=== PATIENT | female | born 1990 | race African-American/Black ===

== ENCOUNTER 2018-05-21 11:17 | Emergency (ER) | payer OTHER ==
[2018-05-21] MEDS ORDERED: ACETAMINOPHEN 500 MG TAB ONE (11:47)
--- NOTE | 2018-05-21 12:32 | RAD REPORT ---
EXAM DESCRIPTION: VAS - Extremity Venous Uni Ltd - 05/21/2018 12:08 pm CLINICAL HISTORY: PAIN Leg swelling and edema. COMPARISON: No comparisons FINDINGS: Right lower extremity venous system was interrogated with Doppler technique. Normal flow, compressibility and augmentation was noted. There is no DVT present. IMPRESSION: No evidence of right lower extremity deep venous thrombosis.
[2018-05-21 12:37] LABS: Absolute Lymphocytes (CBC) 1.5 K/uL (0.7-4.9); Absolute Monocytes 1.2 K/uL (0.1-1.3); Absolute Neutrophil 3.7 K/uL (1.8-8.0); Basophils % 0.7 % (0-1.3); Hematocrit 29.2 % (36.0-45.0); MCH 31.2 pg (27.0-35.0); MCV 91.2 fL (80-100); MPV 8.4 fL (7.6-11.3); Monocytes % 18.1 % (3.3-12.3)
[2018-05-21 12:58] LABS: BUN Blood Urea Nitrogen 4 mg/dL (7-18); Bicarbonate 25 mmol/L (21-32); C-Reactive Protein < 2.90 mg/L (<3.00); Creatine Phosphokinase 117 U/L (26-192); Glucose Level 99 mg/dL (74-106); Potassium 3.6 mmol/L (3.5-5.1); Sodium Level 138 mmol/L (136-145)
[2018-05-21 12:59] LABS: Blood Morphology Comment NOT SEEN (NOT SEEN); Platelet Estimate ADEQ
--- NOTE | 2018-05-21 13:14 | ER ---
Nurse's Notes [facility] Name: Adeola Acosta Age: 28 yrs Sex: Female : 1990 Arrival Date: 05/21/2018 Time: 11:19 Bed 8 Private MD: Diagnosis: Pain in left leg Presentation: 05/21 11:29 Presenting complaint: Patient states: Right calf pain since yesterday. Fell 2 days ago aj while at work. Patient also reports SOB. Transition of care: patient was not received from another setting of care. Onset of symptoms was May 20, 2018. Risk Assessment: Do you want to hurt yourself or someone else? Patient reports no desire to harm self or others. Initial Sepsis Screen: Does the patient meet any 2 criteria? No. Patient's initial sepsis screen is negative. Does the patient have a suspected source of infection? No. Patient's initial sepsis screen is negative. Care prior to arrival: None. 11:29 Method Of Arrival: Wheelchair aj 11:29 Acuity: JESU 3 aj Triage Assessment: 11:30 General: Appears in no apparent distress. comfortable, Behavior is calm, cooperative, aj appropriate for age. Pain: Complains of pain in right calf. Neuro: Level of Consciousness is awake, alert, obeys commands, Oriented to person, place, time, situation, Appropriate for age. Cardiovascular: Denies chest pain. Respiratory: Reports shortness of breath Airway is patent Respiratory effort is even, unlabored, Respiratory pattern is regular, symmetrical. Derm: Skin is intact, is healthy with good turgor, Skin is pink, warm \\T\\ dry. normal. Musculoskeletal: Reports pain in right calf. 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 - Social history:: Smoking status: Patient/guardian denies using tobacco. - Ebola Screening: : Patient denies travel to an Ebola-affected area in the 21 days before illness onset. Screenin:26 Abuse screen: Denies threats or abuse. Nutritional screening: No deficits noted. tw2 Tuberculosis screening: No symptoms or risk factors identified. Fall Risk None identified. Assessment: 11:35 General: Appears in no apparent distress. well groomed, Behavior is calm, cooperative, tw2 appropriate for age. Pain: Complains of pain in right calf. Neuro: Level of Consciousness is awake, alert, obeys commands, Oriented to person, place, time, situation. Cardiovascular: Denies chest pain, Heart tones S1 S2 Capillary refill < 3 seconds Patient's skin is warm and dry. Respiratory: Airway is patent Respiratory effort is even, unlabored, Respiratory pattern is regular, symmetrical, Breath sounds are clear bilaterally. GI: Abdomen is round pt states "i am 7 months with my first". : No signs and/or symptoms were reported regarding the genitourinary system. EENT: No signs and/or symptoms were reported regarding the EENT system. Derm: Skin temperature is warm. Musculoskeletal: Range of motion: intact in all extremities. 11:50 Reassessment: US at bedside at this time. tw2 12:34 Reassessment: Patient appears in no apparent distress at this time. No changes from tw2 previously documented assessment. Patient and/or family updated on plan of care and expected duration. Pain level reassessed. Patient is alert, oriented x 3, equal unlabored respirations, skin warm/dry/pink. pt states "can i get crutches or something because i cant walk on it", provider notified. Vital Signs: 11:30 BP 108 / 67; Pulse 78; Resp 19; Temp 97.8; Pulse Ox 100% on R/A; Weight 91.63 kg; aj Height 5 ft. 4 in. (162.56 cm); 12:34 BP 109 / 70; Pulse 87; Resp 17; Pulse Ox 100% on R/A; tw2 13:29 BP 109 / 78; Pulse 79; Resp 17; Pulse Ox 100% on R/A; tw2 11:30 Body Mass Index 34.67 (91.63 kg, 162.56 cm) Vitals: 12:34 Heart Tones 144 bpm. tw2 ED Course: 11:19 Patient arrived in ED. sb2 11:24 Salo Begum PA is PHCP. cp 11:24 Ricardo Sheffield MD is Attending Physician. cp 11:26 Dawn Beaulieu RN is Primary Nurse. tw2 11:30 Triage completed. aj 11:30 Arm band placed on left wrist. Patient placed in an exam room. aj 11:37 Placed in gown. Bed in low position. Call light in reach. Side rails up X 1. Pulse ox tw2 on. NIBP on. 12:08 US Extremity Venous Unilateral Ltd In Process Unspecified. EDMS 12:12 Vipul Escobar MD is Attending Physician. cp 13:25 Crutch training done. [place] wrap to right calf. tw2 13:38 No provider procedures requiring assistance completed. IV discontinued, intact, tw2 bleeding controlled, No redness/swelling at site. Pressure dressing applied. Administered Medications: 11:49 Drug: Tylenol 1000 mg Route: PO; tw2 12:35 Follow up: Response: No adverse reaction tw2 Outcome: 13:13 Discharge ordered by MD. cp 13:38 Discharged to home via wheelchair, with crutches. tw2 13:38 Condition: stable 13:38 Discharge instructions given to patient, Instructed on discharge instructions, follow up and referral plans. safety practices, crutch walking, Demonstrated understanding of instructions, follow-up care, crutch walking. 13:40 Patient left the ED. tw2 Signatures: Dispatcher [employer] EDBarbara Leach, RN RN Salo Jacobson, PA PA Dawn Her, RN RN tw2 Lyly Montgomery sb2
--- NOTE | 2018-05-21 13:14 | EDPHYS ---
Physician Documentation [facility] Name: Adeola Acosta Age: 28 yrs Sex: Female : 1990 Arrival Date: 05/21/2018 Time: 11:19 Bed 8 Private MD: ED Physician Vipul Escobar HPI: 05/21 11:56 This 28 yrs old Black Female presents to ER via Wheelchair with complaints of Leg Pain. cp 11:56 The patient presents with pain, that is acute, tenderness. The complaints affect the cp posterior aspect of right knee and right calf. Onset: The symptoms/episode began/occurred yesterday. 11:56 Context: resulted from an unknown cause, the patient can partially bear weight, the cp patient is able to ambulate, with moderate difficulty. Associated signs and symptoms: Pertinent positives: calf tenderness, Pertinent negatives fever, rash, warmth, weakness. Treatment prior to arrival includes: no previous treatment. Severity of symptoms: in the emergency department the symptoms are unchanged. 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 - Social history:: Smoking status: Patient/guardian denies using tobacco. - Ebola Screening: : Patient denies travel to an Ebola-affected area in the 21 days before illness onset. ROS: 12:00 Constitutional: Negative for body aches, chills, fever, poor PO intake. cp 12:00 Eyes: Negative for injury, pain, redness, and discharge. cp 12:00 ENT: Negative for drainage from ear(s), ear pain, sore throat, difficulty swallowing, difficulty handling secretions. 12:00 Cardiovascular: Negative for chest pain, edema, orthopnea, palpitations. 12:00 Respiratory: Positive for shortness of breath, Negative for cough, pleurisy, wheezing. 12:00 Abdomen/GI: Negative for abdominal pain, vomiting, diarrhea, constipation, black/tarry stool, rectal bleeding. 12:00 Back: Negative for pain at rest, pain with movement, radiated pain. 12:00 MS/extremity: Positive for pain, tenderness, of the posterior aspect of right knee and right calf, Negative for injury or acute deformity, decreased range of motion, paresthesias. 12:00 Skin: Negative for cellulitis, rash. 12:00 Neuro: Negative for altered mental status, dizziness, syncope, near syncope, weakness. 12:00 All other systems are negative. Exam: 11:08 Constitutional: The patient appears in no acute distress, alert, awake, cp non-diaphoretic, non-toxic, well developed, well nourished. 11:08 Head/Face: Normocephalic, atraumatic. cp 11:08 Eyes: Periorbital structures: appear normal, Conjunctiva: normal, no exudate, no injection, Sclera: no appreciated abnormality, Lids and lashes: appear normal, bilaterally. 11:08 ENT: External ear(s): are unremarkable, Nose: is normal, Mouth: Lips: moist, Oral mucosa: pink and intact, moist, Posterior pharynx: is normal, airway is patent, no erythema, no exudate. 11:08 Chest/axilla: Inspection: normal. 11:08 Cardiovascular: Rate: normal, Rhythm: regular. 11:08 Respiratory: the patient does not display signs of respiratory distress, Respirations: normal, no use of accessory muscles, no retractions, no splinting, no tachypnea, Breath sounds: are clear throughout, no decreased breath sounds, no stridor, no wheezing. 11:08 Abdomen/GI: Inspection: gravid appearance, is noted, Bowel sounds: active, all quadrants, Palpation: abdomen is soft and non-tender, in all quadrants. 11:08 Back: pain, is absent, ROM is normal. 11:08 Musculoskeletal/extremity: Extremities: grossly normal except: noted in the right calf and posterior aspect of right knee: pain, tenderness, There is no evidence of decreased ROM, deformity, erythema, ROM: limited passive range of motion due to pain, in the right knee, Perfusion: the extremity is normally perfused throughout, DVT Exam: pain, that is moderate, of the left leg, tenderness, that is moderate, of the left leg. 11:08 Skin: cellulitis, is not appreciated, no rash present. 11:08 Neuro: Orientation: to person, place \T\ time. Mentation: lucid, able to follow commands, Cerebellar function: is grossly normal, Motor: moves all fours, strength is normal. Vital Signs: 11:30 BP 108 / 67; Pulse 78; Resp 19; Temp 97.8; Pulse Ox 100% on R/A; Weight 91.63 kg; aj Height 5 ft. 4 in. (162.56 cm); 12:34 BP 109 / 70; Pulse 87; Resp 17; Pulse Ox 100% on R/A; tw2 13:29 BP 109 / 78; Pulse 79; Resp 17; Pulse Ox 100% on R/A; tw2 11:30 Body Mass Index 34.67 (91.63 kg, 162.56 cm) aj MDM: 11:24 Patient medically screened. cp 12:15 Differential diagnosis: cellulitis, DVT, muscle strain. cp 13:11 Data reviewed: vital signs, nurses notes, lab test result(s), radiologic studies, cp ultrasound. 13:11 Counseling: I had a detailed discussion with the patient and/or guardian regarding: the cp historical points, exam findings, and any diagnostic results supporting the discharge/admit diagnosis, lab results, radiology results, the need for outpatient follow up, an OB/Gyne specialist, to return to the emergency department if symptoms worsen or persist or if there are any questions or concerns that arise at home. Response to treatment: the patient's symptoms have mildly improved after treatment, and as a result, I will discharge patient. 05/21 12:08 Order name: CBC with Diff; Complete Time: 13:00 cp 05/21 13:01 Interpretation: Normal except: RBC 3.20; HGB 10.0; HCT 29.2; MN% 18.1. cp 05/21 12:08 Order name: CRP; Complete Time: 13:00 cp 05/21 12:08 Order name: CPK; Complete Time: 13:00 cp 05/21 12:08 Order name: BMP; Complete Time: 13:00 cp 05/21 12:59 Order name: Manual Differential; Complete Time: 13:00 EDMS 05/21 13:19 Order name: Urine Dipstick--Ancillary (enter results) eb 05/21 11:39 Order name: US Extremity Venous Unilateral Ltd; Complete Time: 13:00 cp 05/21 12:08 Order name: IV; Complete Time: 12:33 cp 05/21 12:08 Order name: Urine Dipstick-Ancillary (obtain specimen); Complete Time: 13:29 cp 05/21 12:09 Order name: FHT's; Complete Time: 12:33 cp 05/21 13:02 Order name: [place] Wrap; Complete Time: 13:29 cp 05/21 13:02 Order name: Crutches; Complete Time: 13:28 cp 05/21 13:19 Order name: Urine --Ancillary (enter results) eb Administered Medications: 11:49 Drug: Tylenol 1000 mg Route: PO; tw2 12:35 Follow up: Response: No adverse reaction tw2 Disposition: 05/21/18 13:13 Discharged to Home. Impression: Pain in left leg. - Condition is Stable. - Discharge Instructions: Medicines During , Musculoskeletal Pain. - Medication Reconciliation Form, Thank You Letter, Antibiotic Education, Prescription Opioid Use, Work release form form. - Follow up: Private Physician; When: 1 - 2 days; Reason: Recheck today's complaints. - Problem is new. - Symptoms are unchanged. Addendum: 05/27/2018 07:13 Co-signature as Attending Physician, Vipul Escobar MD. g s Signatures: Dispatcher [employer] EDMS Barbara Cortez RN RN aj Salo Begum PA PA cp Dawn Beaulieu RN RN tw2 Vipul Escobar MD MD Corrections: (The following items were deleted from the chart) 05/21 13:01 13:00 Normal except: RBC 3.20; HGB 10.0; HCT 29.2. cp cp 13:40 13:13 05/21/2018 13:13 Discharged to Home. Impression: Pain in left leg. Condition is tw2 Stable. Forms are Work release form, Medication Reconciliation Form, Thank You Letter, Antibiotic Education, Prescription Opioid Use. Follow up: Private Physician; When: 1 - 2 days; Reason: Recheck today's complaints. Problem is new. Symptoms are unchanged. cp
[2018-05-21 13:25] LABS: Urine Blood NEGATIVE (NEG); Urine Glucose NEGATIVE (NEG); Urine Protein NEGATIVE (NEG); Urine Specific Gravity 1.015 (1.005-1.030)
[2018-05-21 13:52] VITALS: O2SAT 100
[2018-05-21 13:53] VITALS: TEMP 97.8
[2018-05-21 13:54] VITALS: BP 109/78
== END 2018-05-21 13:40 | disposition home or self-care (01) ==
LOC: ER 11:17
DX: M79.661 Pain in right lower leg (principal); Z3A.28 28 weeks gestation of pregnancy
CPT/HCPCS: 36415; 80048; 81003; 81025; 82550; 85025; 86140; 93971; 99284

== ENCOUNTER 2018-05-25 16:38 | Observation (INO) | payer OTHER ==
[2018-05-25] MEDS ORDERED: BETAMET ACET/BETAMET NA PH 6 MG/ML VIAL IM ONE (17:24)
[2018-05-25] MEDS ORDERED: TERBUTALINE SULF 1 MG/1ML SQ ONE ×2 (17:25→18:46)
[2018-05-25] MEDS ORDERED: BETAMET ACET/BETAMET NA PH 6 MG/ML VIAL IM SCH (19:00)
--- NOTE | 2018-05-25 19:39 | PREOPHP ---
Date of Admission: 05/25/2018 History Of Present Illness: Ms. Acosta is a 28-year-old, black female 4 , para 2-1-0-3, with 1 delivery at 35 weeks gestation. She has been followed by the [facility] with no particular problems other than 1 prior delivery and some complaints of contractions. She notes the onset of pressure or increased pressure and contractions today and presents to Labor and Delivery for evaluation. She denies any vaginal bleeding, any gush of fluid. She noticed increased cramping, contractions after intercourse, and presented to Labor and Delivery for evaluation. Uterine irritability was noted, but because of prior delivery at 35 weeks gestation by her history, she will be admitted for 24 hour observation and a course of 2 doses of Celestone Soluspan. Past Medical History: Includes 3 prior vaginal deliveries, a 9 pounds , an 8 pounds infant, and 6+ pounds infant at 35 weeks gestation. She denies any blood pressure problems or diabetes problems with those pregnancies. She denies any significant problems during this . Her only other hospitalization was for tonsillectomy. She is on no medications other than vitamin. Allergies: SHE HAS NO KNOWN ALLERGIES. Social History: She does not smoke. Family History: Noncontributory. Review of Systems: She reports no recent cough, cold, fever, or chills. No recent nausea or vomiting. She denies any breast lumps. She denies any bowel or bladder issues. Physical Examination: General: Reveals black female. Neck: Supple without adenopathy or thyromegaly. Lungs: Clear. Cardiac: Regular rate and rhythm without murmurs. Abdomen: Nontender. Consistent with 35 week . External monitor show stable heart rate with some mild irritability. Pelvic: Cervix less than centimeter dilated, long, presenting part high. Extremities: No cyanosis, clubbing, or edema. Plan: The patient will be admitted overnight for observation because of prior delivery and complaints of pressure and contractions. She will be given Celestone Soluspan. Has been given 1 dose subcu terbutaline. We will use as necessary. If labor ensues, we will transfer to a facility with NICU. DONNIE Voice ID: [id number] [facility]
[2018-05-25 20:21] VITALS: BMI 36.0
[2018-05-26 04:09] VITALS: BP 106/49; TEMP 97.7
[2018-05-26] MEDS ORDERED: ACETAMINOPHEN 325 MG TABLET ONE (07:37)
--- NOTE | 2018-05-26 07:38 | P.PN ---
Date of Service: 05/26/18 Cx unchanged, pp high, monitor shows no contractions. Has received second dose of Celestone. Dismiss to be seen back in the clinic, appt. this by paty.
--- NOTE | 2018-05-27 04:19 | DS ---
Date of Discharge: 05/26/2018 DISMISSAL SUMMARY Final Hospital Discharge Diagnosis: A 33-week to suspected labor. Complications: None. Procedures: None. Hospital Course: The patient is a 28-year-old black female, 4, para 2-1-0-3, at approximatel y 33 weeks' gestation following through the [facility] with 1 prior delivery of 35 weeks' gestation. She had noticed increasing symptoms of pressure and contractions and presented to Labor and Deliver y for evaluation. Uterine irritability was noted because of prior delivery at 35 weeks' gestation. She was admitted for 23-hour observation and was given 2 doses of Celestone Soluspan for pulmonary ma turity. She was given 1 dose of subcu terbutaline and uterine irritability stopped. Cervix remained unchanged, and on evaluation this morning, she is dismissed to be followed through the [facility]. She had an appointment this for continuing care. She is dismissed to decrease physical act ivities, increase oral hydration. AVELINO/SUSY Voice ID: [id number] Report ID: [id number]
== END 2018-05-26 07:55 | disposition home or self-care (01) ==
LOC: L&D 16:38 → 2ND-WC 18:40
PROVIDERS: ADMIT Specialist; ATTEND Specialist
DX: O60.03 Preterm labor without delivery, third trimester (principal); Z3A.35 35 weeks gestation of pregnancy
CPT/HCPCS: 99218; G0378; J3105

== ENCOUNTER 2018-08-13 02:35 | Emergency (ER) | payer OTHER ==
--- NOTE | 2018-08-13 03:22 | EDPHYS ---
Physician Documentation [facility] Name: Erin Acosta Age: 28 yrs Sex: Female : 1990 Arrival Date: 08/13/2018 Time: 02:37 Bed 6 Private MD: ED Physician Tim Brody HPI: 08/13 02:58 This 28 yrs old Black Female presents to ER via Ambulatory with complaints of pkl Nausea/Vomiting. 02:58 The patient presents to the emergency department with nausea, vomiting, diarrhea. pkl Onset: The symptoms/episode began/occurred 3 day(s) ago. Associated signs and symptoms: The patient has no apparent associated signs or symptoms. 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 - Social history:: Smoking status: Patient/guardian denies using tobacco. - Ebola Screening: : No symptoms or risks identified at this time. ROS: 02:58 Eyes: Negative for injury, pain, redness, and discharge, ENT: Negative for injury, pkl pain, and discharge, Neck: Negative for injury, pain, and swelling, Cardiovascular: Negative for chest pain, palpitations, and edema, Respiratory: Negative for shortness of breath, cough, wheezing, and pleuritic chest pain. 02:58 Abdomen/GI: Positive for nausea, vomiting, and diarrhea. 02:58 Back: Negative for acute changes. 02:58 : Negative for urinary symptoms. 02:58 MS/extremity: Negative for acute changes. 02:58 Skin: Negative for rash. 02:58 Neuro: Negative for altered mental status. Exam: 02:58 Head/Face: Normocephalic, atraumatic. Eyes: Pupils equal round and reactive to light, pkl extra-ocular motions intact. Lids and lashes normal. Conjunctiva and sclera are non-icteric and not injected. Cornea within normal limits. Periorbital areas with no swelling, redness, or edema. ENT: Nares patent. No nasal discharge, no septal abnormalities noted. Tympanic membranes are normal and external auditory canals are clear. Oropharynx with no redness, swelling, or masses, exudates, or evidence of obstruction, uvula midline. Mucous membranes moist. Neck: Trachea midline, no thyromegaly or masses palpated, and no cervical lymphadenopathy. Supple, full range of motion without nuchal rigidity, or vertebral point tenderness. No Meningismus. Chest/axilla: Normal chest wall appearance and motion. Nontender with no deformity. No lesions are appreciated. Cardiovascular: Regular rate and rhythm with a normal S1 and S2. No gallops, murmurs, or rubs. Normal PMI, no JVD. No pulse deficits. Respiratory: Lungs have equal breath sounds bilaterally, clear to auscultation and percussion. No rales, rhonchi or wheezes noted. No increased work of breathing, no retractions or nasal flaring. 02:58 Abdomen/GI: Bowel sounds: active, Palpation: abdomen is soft and non-tender, in all quadrants. 02:58 Back: Exam negative for acute changes. 02:58 : Exam negative for acute changes. 02:58 Musculoskeletal/extremity: Exam is negative for acute changes. 02:58 Skin: Exam negative for rash. 02:58 Neuro: Orientation: is normal, Mentation: is normal, Cranial nerves: grossly normal, Motor: is normal. Vital Signs: 02:49 BP 159 / 96; Pulse 62; Resp 16; Temp 98.4(O); Pulse Ox 100% on R/A; Weight 94.35 kg ak1 (R); Height 5 ft. 4 in. (162.56 cm) (R); Pain 0/10; 02:49 Body Mass Index 35.70 (94.35 kg, 162.56 cm) ak1 MDM: 02:43 Patient medically screened. pkl 08/13 02:58 Order name: Urine Dipstick--Ancillary (enter results) cc 08/13 02:57 Order name: IV Saline Lock pkl 08/13 02:57 Order name: Labs collected and sent pkl 08/13 02:58 Order name: Urine Dipstick-Ancillary (obtain specimen); Complete Time: 02:58 cc 08/13 02:58 Order name: Urine Test (obtain specimen); Complete Time: 02:58 cc 08/13 02:58 Order name: Urine --Ancillary (enter results) cc Administered Medications: No medications were administered Disposition: 08/13/18 03:21 Patient left the facility after being seen by provider. - Patient left due to (see nurse's notes). Signatures: Dispatcher [employer] Tim Avila MD MD pkl Christian, Chelsea cc Krenek, Amber, RN RN ak1
--- NOTE | 2018-08-13 03:22 | ER ---
Nurse's Notes [facility] Name: Erin Acosta Age: 28 yrs Sex: Female : 1990 Arrival Date: 08/13/2018 Time: 02:37 Bed 6 Private MD: Diagnosis: Presentation: 08/13 02:51 Presenting complaint: Patient states: nausea/vomiting X3 days with intermittent ak1 diarrhea. Transition of care: patient was not received from another setting of care. Onset of symptoms is unknown. Risk Assessment: Do you want to hurt yourself or someone else? Patient reports no desire to harm self or others. Initial Sepsis Screen: Does the patient meet any 2 criteria? No. Patient's initial sepsis screen is negative. Does the patient have a suspected source of infection? No. Patient's initial sepsis screen is negative. Care prior to arrival: None. 02:51 Method Of Arrival: Ambulatory ak1 02:51 Acuity: JESU 4 ak1 Triage Assessment: 02:53 General: Appears in no apparent distress. Behavior is calm, cooperative. Pain: Denies ak1 pain. GI: Reports diarrhea, nausea, vomiting, Patient currently denies pain. 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 - Social history:: Smoking status: Patient/guardian denies using tobacco. - Ebola Screening: : No symptoms or risks identified at this time. Screenin:54 Abuse screen: Denies threats or abuse. Denies injuries from another. Nutritional ak1 screening: No deficits noted. Tuberculosis screening: No symptoms or risk factors identified. Fall Risk None identified. Assessment: 02:57 General: Appears in no apparent distress. Behavior is appropriate for age. Pain: Denies lp1 pain. Neuro: Level of Consciousness is awake, alert, obeys commands. Cardiovascular: No deficits noted. Respiratory: No deficits noted. GI: Abdomen is non-distended, Reports nausea. : No signs and/or symptoms were reported regarding the genitourinary system. EENT: No deficits noted. Derm: No deficits noted. Musculoskeletal: No deficits noted. 03:04 Reassessment: Patient states she would like to feed baby prior to blood draw. lp1 03:20 Reassessment: pt stated her called and needs a ride home from work, pt left ak1 stating she would return sometime. Vital Signs: 02:49 BP 159 / 96; Pulse 62; Resp 16; Temp 98.4(O); Pulse Ox 100% on R/A; Weight 94.35 kg ak1 (R); Height 5 ft. 4 in. (162.56 cm) (R); Pain 0/10; 02:49 Body Mass Index 35.70 (94.35 kg, 162.56 cm) ak1 ED Course: 02:37 Patient arrived in ED. ag3 02:43 Tim Brody MD is Attending Physician. pkl 02:46 Estelle Valdez, RN is Primary Nurse. lp1 02:49 Arm band placed on Patient placed in an exam room, on a stretcher, on pulse oximetry, ak1 Patient notified of wait time. 02:53 Triage completed. ak1 02:54 Patient has correct armband on for positive identification. Bed in low position. Call ak1 light in reach. Side rails up X 1. Pulse ox on. NIBP on. Administered Medications: No medications were administered Outcome: 03:21 Patient left the ED. ak1 Signatures: Tim Brody MD MD pkl Estelle Valdez, RN RN lp1 Regina Dumas RN RN ak1 Carleen Orellana ag3 Corrections: (The following items were deleted from the chart) 03:05 03:05 BP 106 / 67; Pulse 110bpm; Resp 20bpm; Pulse Ox 97% RA; lp1 lp1
[2018-08-13] MEDS ORDERED: NA CHLORIDE 0.9% 0 ML ONE (03:24)
[2018-08-13] MEDS ORDERED: ONDANSETRON 4 MG/2 ML VIAL ONE (03:24)
[2018-08-13 03:28] LABS: Urine Blood NEGATIVE (NEG); Urine Glucose NEGATIVE (NEG); Urine Protein NEGATIVE (NEG); Urine Specific Gravity 1.015 (1.005-1.030); Urine pH 5.5 (5.0-7.0)
[2018-08-13 03:29] VITALS: BP 159/96; TEMP 98.4; O2SAT 100
== END 2018-08-13 03:21 | disposition left against medical advice (07) ==
LOC: ER 02:35
DX: Z53.21 Procedure and treatment not carried out due to patient leaving prior to being seen by health care provider (principal)
CPT/HCPCS: 81003; 81025; 99282; J2405; J7030